=== PATIENT | female | born 1955 | race Hispanic/Latino ===

== ENCOUNTER 2017-04-28 00:55 | Emergency (ER) | payer BC, OTHER ==
[2017-04-28] MEDS ORDERED: Bacitracin 500 Units/gm Oint Foilpak UD TOP ONE (01:34)
--- NOTE | 2017-04-28 01:34 | C.PDOC ---
History Of Present Illness 61 y/o female brought to ED by BLS for evaluation after tripping and falling while walking dog [employer]. Notes she fell on her hands and knees and then her head hit the ground. (+) ambulatory on scene. (-) taking blood thinner. Notes headache has improved since the incident. Patient denies loc, vision changes, changes in sensation, dizziness or any other complaints at this time. - HPI Time Seen by Provider: 04/28/17 01:25 Chief Complaint (Nursing): Trauma History Per: Patient History/Exam Limitations: no limitations Onset/Duration Of Symptoms: Hrs Location Of Injury: Right: Hand, Knee, Left: Hand, Knee Past Medical History Reviewed: Historical Data, Nursing Documentation, Vital Signs Vital Signs: Last Vital Signs Temp 98 F 04/28/17 03:02 Pulse 62 04/28/17 03:02 Resp 16 04/28/17 03:02 BP 160/100 H 04/28/17 03:02 Pulse Ox 97 04/28/17 03:02 - Medical History PMH: Anxiety, Arthritis, Depression, HTN, Hypercholesterolemia Family History: States: No Known Family Hx - Social History Hx Tobacco Use: No Hx Alcohol Use: No Hx Substance Use: No - Immunization History Hx Tetanus Toxoid Vaccination: Yes (2012) Hx Influenza Vaccination: No Hx Pneumococcal Vaccination: No Review Of Systems Except As Marked, All Systems Reviewed And Found Negative. Eyes: Negative for: Vision Change Gastrointestinal: Negative for: Nausea, Vomiting Skin: Positive for: Bruising Neurological: Negative for: Weakness, Numbness Physical Exam - Physical Exam Appears: Non-toxic, No Acute Distress Skin: Warm, Ecchymosis (To left forehead and nasal bridge) Head: Normacephalic, Swelling (To nasal bridge) Eye(s): bilateral: Normal Inspection, PERRL, EOMI Ear(s): Bilateral: Normal Nose: No Epistaxis, Tenderness (To nasal bridge), No Septal Hematoma Oral Mucosa: Moist Lips: Abrasion ((+) to right upper lip) Teeth: No Tender To Palpation, No Loose Neck: Normal ROM, Supple Chest: Symmetrical Cardiovascular: Rhythm Regular Respiratory: Normal Breath Sounds Gastrointestinal/Abdominal: Soft, No Tenderness Extremity: Normal ROM, No Tenderness, Capillary Refill (<2 seconds), No Deformity, No Swelling, Other (Large abrasion to right knee, small abrasion to left knee, abrasion to right palm and left lateral 5th metacarpal ) Pulses: Left Radial: Normal, Right Radial: Normal Neurological/Psych: Oriented x3, Normal Motor, Normal Sensation, Other (No focal deficits) ED Course And Treatment O2 Sat by Pulse Oximetry: 99 (RA) Pulse Ox Interpretation: Normal Progress Note: On re-evaluation, pt notes imprpovement. No N/v. Headache improved. Pt was offered xrays, pt refused notes they are "scraped'. Pt was given results of CT and instructed RICE and follow up with PMD / ENT in 1-2 days. Return toER if symtpoms persist or worsen. Reevaluation Time: 01:45 Reassessment Condition: Improved Disposition - Disposition Referrals: Nick Chen MD [Staff Provider] - Disposition: HOME/ ROUTINE Disposition Time: 02:36 Condition: STABLE Additional Instructions: Rest and apply ice to affected area. Follow up with PMd in 1-2 days. return to eR if symptoms persist or worsen. Instructions: Nasal Fracture (ED), Head Injury (ED) - Clinical Impression Clinical Impression: Nasal fracture, Contusion of head, Knee abrasion - Scribe Statement The provider has reviewed the documentation as recorded by the Deniseibrustam Ortiz All medical record entries made by the Deniseibrustam were at my direction and personally dictated by me. I have reviewed the chart and agree that the record accurately reflects my personal performance of the history, physical exam, medical decision making, and the department course for this patient. I have also personally directed, reviewed, and agree with the discharge instructions and disposition.
[2017-04-28] MEDS ORDERED: Bacitracin 500 Units/gm Oint Foilpak UD ONE (01:41)
[2017-04-28 03:03] VITALS: BP 160/100; PULSE 62; RESP 16; TEMP 98
[2017-04-28 05:50] VITALS: O2SAT 99
--- NOTE | 2017-04-28 08:22 | CT ---
PROCEDURE: CT HEAD WITHOUT CONTRAST. HISTORY: trauma COMPARISON: None available. TECHNIQUE: Axial computed tomography images were obtained through the head/brain without intravenous contrast. Radiation dose: Total exam DLP = 931 mGy-cm. This CT exam was performed using one or more of the following dose reduction techniques: Automated exposure control, adjustment of the mA and/or kV according to patient size, and/or use of iterative reconstruction technique. FINDINGS: HEMORRHAGE: No intracranial hemorrhage. BRAIN: No mass effect or edema. No atrophy or chronic microvascular ischemic changes. VENTRICLES: Unremarkable. No hydrocephalus. CALVARIUM: Unremarkable. PARANASAL SINUSES: Unremarkable as visualized. No significant inflammatory changes. MASTOID AIR CELLS: Unremarkable as visualized. No inflammatory changes. OTHER FINDINGS: None. IMPRESSION: Normal CT of the Head.
--- NOTE | 2017-04-28 09:28 | CT ---
PROCEDURE: CT MAXILLOFACIAL BONES WITHOUT CONTRAST HISTORY: trauma COMPARISON: None TECHNIQUE: Contiguous axial CT images of the maxillofacial bones were obtained. Coronal and sagittal reformats were generated. Radiation dose: Total exam DLP = 750 mGy-cm. This CT exam was performed using one or more of the following dose reduction techniques: Automated exposure control, adjustment of the mA and/or kV according to patient size, and/or use of iterative reconstruction technique. FINDINGS: NASAL BONES: Nondisplaced left nasal bone fracture.. ORBITS: Unremarkable. PARANASAL SINUSES/ MASTOIDS: Clear. MAXILLA: Unremarkable. MANDIBLE/ TEMPOROMANDIBULAR JOINTS: Unremarkable. SKULL BASE: Unremarkable. TEMPORAL BONES: Middle ears and mastoid grossly unremarkable. OTHER FINDINGS: None. IMPRESSION: Nondisplaced left nasal bone fracture..
== END 2017-04-28 03:02 | disposition home or self-care (01) ==
LOC: C.ER 00:55
DX: S02.2XXA Fracture of nasal bones, initial encounter for closed fracture (principal); S00.83XA Contusion of other part of head, initial encounter; S80.212A Abrasion, left knee, initial encounter; S80.211A Abrasion, right knee, initial encounter; W01.0XXA Fall on same level from slipping, tripping and stumbling without subsequent striking against object, initial encounter; Y93.K1 Activity, walking an animal; Y92.414 Local residential or business street as the place of occurrence of the external cause